=== PATIENT | male | born 1980 | race Caucasian/White ===

== ENCOUNTER → 2022-02-14 | Outpatient (CLI) | payer OTHER ==
--- NOTE | 2022-02-14 13:13 | CT ---
EXAMINATION TYPE: CT knee RT w con DATE OF EXAM: 02/14/2022 COMPARISON: None. HISTORY: right leg pain into hip, broken prosthesis. CT DLP: 391 mGycm Automated exposure control for dose reduction was used. CONTRAST: Performed with IV Contrast, patient injected with 70cc mL of Isovue 300. FINDINGS: Metallic hardware from longstem right knee replacement is identified causing streak artifact limiting evaluation of adjacent structures. Surrounding bone and the distal femoral component is not well-vis ualized presumed absent. Tibial prosthetic component is roughly 1.0 cm superiorly displaced from the [place] tibial plateau. Well-defined rounded lucency is seen. There is more focal lucent component ant eriorly noted. Visualized fibula are intact. Focal mild/moderate subcutaneous edema anteriorly is see n. Muscle bulk fairly well-maintained. IMPRESSION: As above. Probable tibial component slippage or superior displacement. Correlation with postoperative imaging would be beneficial.
== END | disposition home or self-care (01) ==
LOC: RADCTMAIN 11:26 → EDBD 11:45
PROVIDERS: ATTEND Surgery Surgical Oncology
DX: T84.018A Broken internal joint prosthesis, other site, initial encounter (principal)
CPT/HCPCS: 73701; Q9967